=== PATIENT | female | born 1965 | race Caucasian/White ===

== ENCOUNTER 2024-10-08 08:46 | Emergency (ER) | payer OTHER, SELFPAY ==
[2024-10-08 08:49] VITALS: BP 132/88; PULSE 72; TEMP 36.3; O2SAT 99; BMI 21.1
--- OUTSIDE RECORDS SUMMARY | 2024-10-08 08:51 | XMS_ITS | Clinical Summary ---
Author Organization [employer] [facility] [employer] Address [address] [place] [id number] Care Team Providers Care Research Analyst Name Role Phone Eileen Klein MD Primary Care Provide r Allergies Active Allergy Reactions Criticality Noted Date Comments Dust Mites Rash 09/25/2017 Histamine Phosphate Rash,Dizziness,Headache 03/2018 Mold Rash 09/25/2017 Maitake Mushroom 10/31/2010 Gets sick Shellfish Containing Products Shortness Of Breath 09/17/2012 Wheat Myalgia 09/25/2017 Medications Fluocinolone Acetonide 0.01 % oil NoIndications:Ec zema of external ear, unspecified laterality Apply topically to affected area(s) 2 times daily. One drop twice daily to ears for ear eczema 118 mL 1 1 Active EPINEPHrine (EPIPEN) 0.3 mg/0.3 mL auto-injectorInd ications:Shellfi sh allergy ADMINISTER 0.3 MG(1PEN) IN THE MUSCLE 1 TIME NEEDED FOR ALLERGIC REACTION AND SEEK EMERGENCY CARE 2 Each 1 4 Active levothyroxine (SYNTHROID) 125 mcg tabletIndication s:Hypothyroidism (acquired) Take 1 Tablet (125 mcg) by mouth before breakfast. 90 Tablet 3 4 Active desonide (TRIDESILON) 0.05 % creamIndications :Contact dermatitis and eczema Apply topically to affected area(s) two times daily. 7.5 g 3 4 Active fluticasone (50 mcg per actuation) nasal solution (FLONASE)Indicat ions:Environment al allergies Inhale 2 Sprays in both nostrils once daily. 16 g 5 4 Active ketoconazole 2 % creamIndications :Seborrheic dermatitis Apply to affected areas/rash on body twice daily until resolved, then 1-2 times daily as needed. 60 g 3 4 Active triamcinolone (ARISTOCORT; KENALOG) 0.1 % creamIndications :Eczema, unspecified type Apply thin layer to affected areas on body 1-2 times a day as needed. Do not use more than 3 weeks at a time. 28 g 3 4 Active azelastine 137 mcg/actuation (ASTELIN) nasal sprayIndications :Seasonal allergic rhinitis due to pollen Inhale 2 Sprays into affected nostril(s) two times daily. 30 mL 11 5 Active Active Problems Problem Noted Date Diagnosed Date ASCUS of cervix with negative high risk HPV 12/15 Overview (12/28/2023): 12/2023 ASCUS/HPV negative Plan: PAP/HPV due 12/2026 Family history of colon cancer 09/25/2017 Overview (11/30/2022): Colonoscopy 10/2017 normal, repeat in 5 years Colonoscopy 11/2022 normal, repeat in 5 years Celiac disease 12/06/2010 Overview (12/06/2010): EGD 11/2010 celiac disease Ocular migraine 08/25/2008 Pes planus 01/16/2008 Unspecified sinusitis (chronic) 08/13/2007 Unspecified hypothyroidism 07/23/2006 Contact dermatitis and other eczema, due to unspecified cause 07/23/2006 Solitary cyst of breast 07/23/2006 Unspecified hypothyroidism 07/23/2006 Infectious mononucleosis 07/23/2006 Overview (07/23/2006): with hepatitis Resolved Problems Problem Noted Date Diagnosed Date Resolved Date Contact dermatitis and other eczema, due to unspecified cause 07/23/2006 08/25/2008 Encounters Date Type Department Care Team Description 10/08/2024 Nurse Triage [facility] [address] [place] [address] Eileen Klein MD Head Injury 09/25/2024 8:15 AM CDT Nurse/Clinic Staff Only [facility] [address] [place] [address] Immunization/Injectio n (ALLERGY INJECTIONS ) 09/25/2024 Travel 09/18/2024 1:30 PM CDT Nurse/Clinic Staff Only [facility] [address] [place] [address] Immunization/Injectio n (ALLERGY INJECTIONS ) 09/18/2024 Travel 09/04/2024 1:30 PM CDT Nurse/Clinic Staff Only [facility] [address] [place] [address] Immunization/Injectio n (ALLERGY INJECTIONS ) 09/04/2024 Travel 09/01/2024 1:30 PM CDT Nurse/Clinic Staff Only [facility] [address] [facility] [place] [address] Immunization/Injectio n (ALLERGY INJECTIONS ) 09/01/2024 Travel 08/25/2024 1:30 PM CDT Nurse/Clinic Staff Only [facility] [address] [place] [address] Immunization/Injectio n (ALLERGY INJECTIONS ) 08/25/2024 Travel 08/21/2024 2:00 PM CDT Nurse/Clinic Staff Only [facility] [address] [facility] [place] [address] Immunization/Injectio n (ALLERGY INJECTIONS - VORB PER DR. HAN DUE TO REACTION AFTER LAST DOSE. ) 08/21/2024 Travel 08/19/2024 8:00 AM CDT Telemedicine [facility] [address] [phone] Mehdi Han MBBS Allergies; Allergic Reaction 08/19/2024 Telephone [facility] [address] [place], [place] [phone] Mehdi Han MBBS allergy immunotherapy plan 08/18/2024 Travel 08/14/2024 1:15 PM CDT Nurse/Clinic Staff Only [facility] [address] [facility] [place] [address] Immunization/Injectio n (ALLERGY INJECTIONS ) 08/14/2024 Telephone [facility] [address] [facility] [place] [address] Eileen Klein MD Medication Management 08/14/2024 Nurse Triage [facility] [address] [place] [address] Cathleen Trevino RN Error-please disregard 08/14/2024 Travel 08/11/2024 2:00 PM CDT Nurse/Clinic Staff Only [facility] [address] [facility] [place] [address] Immunization/Injectio n (ALLERGY INJECTIONS ) 08/11/2024 Travel 08/04/2024 2:00 PM CDT Nurse/Clinic Staff Only [facility] [address] [place] [address] Immunization/Injectio n (Allergy shots) 08/04/2024 Travel 07/31/2024 2:00 PM CDT Nurse/Clinic Staff Only [facility] [address] [place] [address] Immunization/Injectio n (ALLERGY INJECTIONS ) 07/31/2024 Travel 07/28/2024 2:00 PM CDT Nurse/Clinic Staff Only [facility] [address] [place] [address] Immunization/Injectio n (Allergy shots) 07/28/2024 Travel 07/24/2024 2:15 PM CDT Nurse/Clinic Staff Only [facility] [address] [place] [address] Immunization/Injectio n (Allergy injections ) 07/24/2024 Travel 07/21/2024 2:00 PM CDT Nurse/Clinic Staff Only [facility] [address] [place] [address] Immunization/Injectio n (ALLERGY INJECTIONS ) 07/21/2024 Travel 07/17/2024 2:00 PM CDT Nurse/Clinic Staff Only [facility] [address] [place] [address] Immunization/Injectio n (ALLERGY INJECTIONS ) 07/17/2024 Travel from Last 3 Months Immunizations Immunization Administration Dates Next Due AMB Influenza, IIV3 (Age >=3 years)(Flu Clinic Only) 04/02/2008 COVID-19 vaccine (Madalyn-J& J) PF, MDV 06/21/2020 COVID-19 vaccine (Moderna 100mcg/0.5mL) PF, MDV 01/05/2023 COVID-19 vaccine (Moderna 50mcg/0.5mL) 12YO+ BIVALENT PF, MDV 12/22/2021 Hepatitis A (Adult) 07/21/1996, 6,12/23/1995,1994 Hepatitis B (Adult) 10/14/1993,11/17/1992,1992 Inactivated Polio Vaccine 02/22/1988 Influenza, IIV3 (Age >=3 years) 01/15/2009 Influenza, IIV4 01/19/2022,01/20/2021 Influenza,CCIIV4 PRESERV FREE 02/10/2023, 020 Chinese Encephalitis 10/10/2010,11/07/1994 MMR 10/05/1992 Rabies Vaccine 11/07/1994 Td (Age >=7 Years) 06/16/2003,11/07/1994 Tdap 03/18/2021,10/10/2010 Typhoid (injectable) 09/17/2012,10/11/19 11,08/20/2008,1995,03/24/1988,02/22/1988 Typhoid (oral) 10/05/1992 Yellow Fever 10/10/2010,02/22/1988 Zoster (Shingrix-RZV, recombinant) 02/24/2022, Family History Medical History Relation Name Comments Blood Disease Father preleukemia Cancer-colon Father Glaucoma Father Heart attack Father CABG, pacemaker Hyperlipidemia Father Hypertension Father Leukemia Father Other Father ?allergies Cancer-breast Maternal Grandmother Cancer-breast Maternal Uncle Hypertension Mother Migraines Mother Thyroid Disease Mother Celiac disease Son not confirmed Relation Name Status Comments Child Alive Father Maternal Grandmother Maternal Uncle Mother Son Alive Social History Tobacco Use Types Packs/Day Years Used Date Smoking Tobacco: Never Smokeless Tobacco: Never Tobacco Cessation:Counseling Given: Yes Alcohol Use Standard Drinks/Week Comments No 0 (1 standard drink = 0.6 oz pur e alcohol) PHQ-2 Answer Date Recorded PHQ-2 TOTAL SCORE 0 12/18/2023 Social Connections Answer Date Recorded Do you often feel lonely or isolated from those around you? 0 12/18/2023 Financial Resource Strain Answer Date R ecorded Difficulty of Paying Living Expenses 3 12/18/2023 Difficulty of Paying Living Expenses Not on file 12/18/2023 Food Insecurity Answer Date Recorded Do you worry your food will run out before you are able to buy more? 1 12/18/2023 Transportation Needs Answer Date Record ed Does lack of transportation keep you from medica l appointments? 1 12/18/2023 Does lack of transportation keep you from work, meetings or getting things that you need? 1 12/18/2023 Housing Stability Answer Date Recorded What is your housing situation today? 1 12/18/2023 Utilities Answer Date Recorded Do you have trouble paying f or utilities (for example, heat, electricity, water, phone)? 1 12/18/2023 Comments No Sex and Gender Information Value Date Recorded Sex Assigned at Not on file Legal Sex Female 5:51 AM PRINTING TECHNICIAN Gender Identity Not on file Sexual Orientation Not on file Obstetrics History Para Term AB IAB SAB Ectopic Multiple Livin g Live Births 2 2 2 2 Date Outcome GA Total Labor Labor/2nd/3rd Weight Sex Type Anes PTL Yumiko A1 A5 Name Clin Term Term Last Filed Vital Signs Vital Sign Reading Time Taken Comments Blood Pressure 103/67 12/18/2023 9:04 AM CDT Pulse 78 05/30/2024 10:17 AM PRINTING TECHNICIAN Temperature 36.6 C (97.8 F) 06/06/2023 3:28 PM PRINTING TECHNICIAN Respiratory Rate 12 05/30/2024 10:17 AM PRINTING TECHNICIAN Oxygen Saturation 99% 05/30/2024 10:17 AM PRINTING TECHNICIAN Inhaled Oxygen Concentration - - Weight 65.8 kg (145 lb) 01/25/2024 10:02 AM CDT at home Height 177.2 cm (5' 9.75) 01/25/2024 10:02 AM C DT Body Mass Index 20.95 01/25/2024 10:02 AM CDT Plan of Treatment Upcoming Encounters Date Type Department Care Team (Late st Contact Info) Description 10/09/2024 8:30 AM CDT Nurse/Clinic Staff Only [facility] [address] [place] [address] 10/13/2024 3:15 PM CDT Nurse/Clinic Staff Only [facility] [address] [facility] [place] [address] 11/06/2024 7:45 AM CDT Nurse/Clinic Staff Only [facility] [address] [facility] [place] [address] 11/10/2024 3:30 PM CDT Nurse/Clinic Staff Only [facility] [address] [place] [address] 11/13/2024 3:15 PM CDT Nurse/Clinic Staff Only [facility] [address] [place] [address] 11/17/2024 3:15 PM CDT Nurse/Clinic Staff Only [facility] [address] [facility] [place] [address] 11/20/2024 8:15 AM CDT Nurse/Clinic Staff Only [facility] [address] [facility] [place] [address] 11/24/2024 3:30 PM CDT Nurse/Clinic Staff Only [facility] [address] [facility] [place] [address] 11/27/2024 3:30 PM CDT Nurse/Clinic Staff Only [facility] [address] [facility] [place] [address] 12/01/2024 3:30 PM CDT Nurse/Clinic Staff Only [facility] [address] [place] [address] 12/04/2024 8:15 AM CDT Nurse/Clinic Staff Only [facility] [address] [facility] [place] [address] 12/08/2024 3:30 PM CDT Nurse/Clinic Staff Only [facility] [address] [place] [address] 12/11/2024 3:15 PM CDT Nurse/Clinic Staff Only [facility] [address] [place] [address] 12/23/2024 8:50 AM CDT Office Visit [facility] [address] [place] [address] Eileen Klein MD [address] [place] [address] Health Maintenance Due Date Last Done Comments HIV for age 15-65 06/26/1978 Pneumococcal series for age 50+ (1 of 1 - PCV) 06/26/2013 Influenza Vaccine (Season Ended) 2024 02/10/2023, 01/19/2022, 01/20/2021, Additional history exists Depression screening for age 12+ 12/17/2024 12/18/2023, 12/29/2021, 01/22/2020, Additional history exists BMI (ht and wt on same day) for age 18+ 01/24/2025 01/25/2024, 12/18/2023, 01/16/2023, Additional history exists Mammogram for age 45-75 05/09/2025 05/09/19, 04/30/2023, 04/18/2022, Additional history exists Pap test for age 21-65 12/17/2026 , 12/18/2023, 12/17/2020, Additional history exists Colonoscopy through age 75 12/01/202711/30, 11/30/2022, 11/05/2017, Additional history exists Lipids for age 45-75 02/13/2028 02/12/2023, 12/28/2020, 09/27/2017, Additional history exists Tetanus booster 03/18/2031 03/18/2021, 09/15, 06/16/2003, Additional history exists RSV vaccine for adults or (1 - 1-dose 75+ series) 06/26/2038 Hepatitis B series for 19+ Completed 10/14, 11/17/1992, 10/05/1992 Hepatitis C screening for ag e 18-79 Completed 12/28/2020 Tdap Completed 03/18/2021, 10/10/2010 Zoster (shingles) series for age 50+ Completed 02/24/2022, 11/15/2021 COVID-19 vaccine series Completed 01/26/20 24, 01/05/2023, 12/22/2021, Additional history exists Procedures Procedure Name Priority Date/Time Associated Diagnosis Comments XR MAMMO MARY BILAT SCREEN Routine 05/09/2024 10:14 AM PRINTING TECHNICIAN Encounter for screening mammogram for malignant neoplasm of breast HPV HIGH RISK Routine 12/18/2023 10:15 AM CDT Screening for cervical cancer LIPID PANEL W REFLEX MEASURED LDL Routine 02/12/2023 3:51 PM CDT Lipid screening COLONOSCOPY 11/30/2022 9:38 AM CDT ANTI HCV Routine 12/28/2020 7:36 AM CDT Encounter for hepatitis C screening test for low risk patient from Last 3 Months or Most Recently Relevant to Health Maintenance Results * XR MAMMO MARY BILAT SCREEN (05/09/2024 10:14 AM PRINTING TECHNICIAN) Anatomical Region Laterality Modality BREASTS, Breast Left, Breast Right Bilateral Mammography Impressions 05/12/2024 1:16 PM PRINTING TECHNICIAN There is no radiographic evidence for malignancy. Recommend annual mammograms. MAMMOGRAM ASSESSMENT: ACR 1 Negative PATIENTS: You will also receive a letter with your examination results in an easy to read format. If you have questions about your results, please contact your referring provider. Narrative 05/12/2024 1:16 PM PRINTING TECHNICIAN For Patients: As a result of the Century Cures Act, medical imaging exams and procedure reports are released immediately into your electronic medical record. You may view this report before your referring provider. If you have questions, please contact your health care provider. XR MAMMO MARY BILAT SCREEN [[id number]] CLINICAL HISTORY: This is an asymptomatic 58 y.o. patient. INDICATION FOR EXAM: Mammogram Screening. TECHNIQUE: CC & MLO views were obtained. This study was evaluated with the assistance of Computer-Aided Detection. Breast Tomosynthesis was used in interpretation. COMPARISON FILM: Yes 04/30/23 [facility] 04/18/22 [facility] FINDINGS: The breasts are heterogeneously dense, which may obscure small masses. There are no dominant masses, suspicious micro calcifications or areas of architectural distortion. Eileen Klein MD MAMMO Final Result * HPV HIGH RISK (12/18/2023 10:15 AM CDT) TYPE 16 Negative Negative 12/20/2023 5:23 PM CDT [facility] TYPE 18 Negative Negative 12/20/2023 5:23 PM CDT [facility] OTHER HIGH RISK TYPES Negative Negative 12/20/2023 5:23 PM CDT [facility] Other (Cervical) Non-Blood / Unknown 12/18/2023 10:15 AM CDT 12/19/2023 10:24 AM CDT Narrative [facility] - 12/20/2023 5:23 PM CDT HPV types 16, 18, 31, 33, 35, 39, 45, 51, 52, 56, 58, 59, 66 and 68 DNA were undetectable or below the pre-set threshold. Methodology: Amando Elan 4800 HPV Test Eileen Klein MD MICROBIOLOGY Final Result [facility] [address] [place] [address], * (ABNORMAL) LIPID PANEL W REFLEX MEASURED LDL (02/12/2023 3:51 PM CDT) CHOLESTEROL,TOTAL 211(H) 100 - 199 mg/dL 02/13/2023 2:30 PM CDT [facility] Comment: Cholesterol, Total Reference Ranges Desirable <200 mg/dL Borderline 200-239 mg/dL High >=240 mg/dL TRIGLYCERIDES 86 <150 mg/dL 02/13/2023 2:30 PM CDT [facility] HDL CHOLESTEROL 57 >40 mg/dL 2:30 PM CDT [facility] NON-HDL CHOLESTEROL 154(H) <145 mg/dl 02/13/2023 2:30 PM CDT [facility] CHOL/HDL RATIO 3.70 <4.50 02/13/2023 2:30 PM CDT [facility] LDL CHOLESTEROL 137(H) <=130 mg/dL 02/13/2023 2:30 PM CDT [facility] VLDL CHOLESTEROL 17 <=30 mg/dL 02/13/2023 2:30 PM CDT [facility] PROVIDER ORDERED STATUS RANDOM 02/13/2023 2:30 PM CDT [facility] Blood BLOOD SPECIMEN / Unknown Venipuncture / Unknown 02/12/2023 3:51 PM CDT 02/12/2023 3:53 PM CDT us Eileen Klein MD CHEMISTRY Final Result [facility] [address] [place] [address], * COLONOSCOPY (11/30/2022 9:38 AM CDT) 11/30/2022 9:38 AM CDT Narrative Transcriptions Randell Jesus MD - 11/30/2022 10:20 AM CDT Patient Name: Isabel Kong Procedure Date: 11/30/2022 Gender: Female Date of : 1965 Admit Type: Outpatient Procedure: Colonoscopy Proceduralist: Randell Jesus MD , Jocelyn Metzger RN(Nurse), Kaylee Braswell (Nurse) Indications/Pre-Op Diagnosis: Screening in patient at increased risk:Family history of 1st-degree relative withcolorectal cancer before age 60 years, Lastcolonoscopy: October 2017 Medications: Fentanyl 100 micrograms IV, Midazolam 4 mgIV Procedure Description: The patient had risks, benefits and alternatives explained to andgave informed consent. The patient had a stable cardiopulmonary status and judged an adequate candidate for conscious sedation. The endoscope [id number]-[id number] [id number] was passed through the anus andadvanced to the cecum, identified by appendiceal orifice and ileocecal valve.The colonoscopy was performed without difficulty. The patient toleratedthe procedure well. The quality of the bowel preparation was good. The ileocecal valve, appendiceal orifice, and rectum were photographed. Complications: No immediate complications. Estimated Blood Loss & Specimen: Estimated blood loss: none. Specimen collected - None Findings: The perianal and digital rectal examinations were normal. The entire examined colon appeared normal. Impressions/Post-Op Diagnosis: - The entire examined colon is normal. - No specimens collected. Recommendation: - Patient has a contact number available for emergencies. The signsand symptoms of potential delayed complications were discussed with the patient. Return to normal activities tomorrow. Written discharge instructions were provided to the patient. - Resume previous diet. - Continue present medications. - Repeat colonoscopy in 5 years for screening purposes. Moderate Sedation: A time out was performed before the procedure. Moderate (conscious) sedation was administered by the endoscopy nurse and supervised bythe endoscopist. The following parameters were monitored: oxygensaturation, heart rate, blood pressure, EKG, CO2, respiratory rate, adequacy of pulmonary ventilation and reponse to care. Please refer to the patient's medical record flowsheets and nursing notes for moderate sedation details. Total physician intraservice time was 13 minutes. Randell Jesus MD 11/30/2022 10:20:34 AM This report has been signed electronically. Note Initiated On: 11/30/2022 9:38 AM Procedure Code(s): --- Professional --- 87143, Colonoscopy, flexible; diagnostic, including collection of specimen(s) bybrushing or washing, when performed (separateprocedure) Diagnosis Code(s): --- Professional --- Z80.0, Family history of malignant neoplasmof digestive organs CPT copyright 2021 [employer]. All rights reserved. The codes documented in this report are preliminary and upon charter representative reviewmay be revised to meet current compliance requirements. Scope In: 10:05:52 AM Scope Withdrawal Time 0 hours 6 minutes 57 seconds Scope Out: 10:16:10 AM us Randell Jesus MD PROCEDURE ORD Final Res ult * ANTI HCV (12/28/2020 7:36 AM CDT) HEPATITIS C ANTIBODY Non-React lonnie Non-React lonnie 12/28/2020 4:[address] [facility] [facility] Comment:Antibodies to HCV no t detected; does not exclude the possibility of exposure to HCV. Blood BLOOD SPECIMEN / Unknown Butterfly / Unknown 12/28/2020 7:36 AM CDT 12/28/2020 7:39 AM CDT us Eileen Klein MD SEND OUTS [facility] [address] [place] [address], [place] from Last 3 Months or Most Recently Relevant to Health Maintenance Insurance [employer] [place] [id number] Advance Directives Documents on File Type Date Recorded Patient Lawn Mower Repairer Expl anation Healthcare Directive 07/24/2019 12:00 AM Care Teams Research Analyst Relationship Specialty Start Date End Date Eileen Klein MD [address] [place] [address] PCP - General 08/06/05
--- NOTE | 2024-10-08 09:27 | ED_ITS ---
HPI - General Adult General Date Seen: 10/08/24 Chief complaint: Dizziness/Vertigo Stated complaint: Vertigo Time Seen by Provider: 10/08/24 09:27 History of Present Illness HPI narrative: 59-year-old female presenting to the ER today with dizziness and vertigo. About 9 days ago on September 29 she was getting the bone dried hers when she slipped and she bumped her head on the edge of a canoe. That night she had some vomiting, dizziness and feeling achy. She has been using meclizine, 12.5 mg per dose, for dizziness and vertigo. Related Data Home Medications ?Medication ?Instructions ?Recorded ?Confirmed levothyroxine 112 mcg tablet 112 mcg PO 02/14/2209/16 (Synthroid) Previous Rx's ?Medication ?Instructions ?Recorded meclizine 25 mg tablet 12.5 - 25 mg (0.5 - 1 x 25 m g) PO 10/08/24 TID PRN vertigo #15 tabs ondansetron 4 mg disintegrating 4 mg PO Q8H PRN nausea and 10/08/24 tablet vomiting #10 tabs Allergies Allergy/AdvReac Type Severity Reaction Status Date / Time No Known Drug Allergies Allergy Verified 09/16/24 19:12 [facility] Medical History (Updated 10/08/24 @ 12:31 by Amilcar Fair MD) Celiac disease ?K90.0 - Celiac disease (ICD-10) Low back pain ?M54.50 - Low back pain, unspecified (ICD-10) Benign cyst of breast ?N60.09 - Solitary cyst of unspecified breast (ICD-10) History of cyst of breast ?Z87.2 - Personal history of diseases of the skin and subcutaneous tissue (ICD-10) Surgical History (Reviewed 02/14/22 @ 14:17 by Margy Coy ~ [facility], [facility]) History of appendectomy ?Z90.49 - Acquired absence of other specified parts of digestive tract (ICD- 10) Family History Father Colon cancer Social History (Updated 02/14/22 @ 14:17 by Margy Coy ~ [facility], [facility]) Smoking Status: Never smoker Do you use any of these nicotine containing products: None Second hand tobacco smoke exposure: No Exam Const: Vital Signs, click to edit/add: Vital Signs - 24 hr 10/08/24 08:49 Temperature 97.4 F L Pulse Rate [Pulse Oximeter] 72 Blood Pressure [Ri ght Upper Arm] 132/88 Pulse Oximetry 99 Oxygen Delivery Me thod Room Air Course Course ED Course: Recheck-had another wave of vertigo triggered when she laid down for CT. Back from CT she is now feeling better. Nausea improved after Zofran. Still feels like a little bit of a pressure like some swelling and heaviness in her frontal area of her head, but does not really want to call that a ? headache. Does not want any medication for it for now. Otherwise gait is stable. Vital Signs Vital signs: Initial Vital Signs Temperature 97.4 F L 10/08/24 08:49 Temperature Source Temporal Artery Scan 10/08/24 08:49 Pulse Rate 72 10/08/24 08:49 Blood Pressure 132/88 10/08/24 08:49 Blood Pressure Mean 102 10/08/24 08:49 Blood Pressure Position Sitting 10/08/24 08:49 Pulse Oximetry 99 10/08/24 08:49 Oxygen Delivery Method Room Air 10/08/24 08:49 Vital Signs Temperature 97.4 F L 10/08/24 08:49 Pulse Rate 72 10/08/24 08:49 Blood Pressure 132/88 10/08/24 08:49 Pulse Oximetry 99 10/08/24 08:49 Oxygen Delivery Method Room Air 10/08/24 08:49 Temperature 97.4 F L 10/08/24 08:49 Pulse Rate 72 10/08/24 08:49 Blood Pressure 132/88 10/08/24 08:49 Pulse Oximetry 99 10/08/24 08:49 Oxygen Delivery Method Room Air 10/08/24 08:49 Medications Administered Medications: Discontinued Medications Generic Name Dose Route Start Last Admin Trade Name Freq PRN Reason Stop Dose Admin Ondansetron HCl 4 mg 10/08/24 10:21 10/08/24 10:29 Ondansetron 2 Mg/Ml Inj IVP 10/08/24 10:22 4 mg ONCE ONE Administration Medical Decision Making MDM Narrative Medical decision making narrative: This patient presents for evaluation of dizziness c/w vertigo as well as general ly feeling unwell, sometimes nauseous, mild headache ?like a sock? in her frontal lobe. She actually suffered a mild traumatic brain injury last Sunday when the symptoms started. The differential diagnosis of vertigo is broad and includes common etiologies such as menieres disease, labyrinthitis, benign positional vertigo, otitis media, etc. More serious etiologies considered include central etiologies such as tumor, intracerebral bleed, dissection, ischemic cerebral vascular accident, stroke, intracranial hemorrhage as well as traumatic brain injury such as concussion. Differential includes intracranial injuries (e.g. skull fracture, epidural hematoma, subdural hematoma, intracerebral hemorrhage, and traumatic subarachnoid hemorrhage), verses concussion or other traumatic brain injury. CT imaging was obtained and fortunately was normal. At this time it appears that the patient's symptoms are due to a concussion. The patient/family understand that they must return if any red flags appear/develop in the coming hours/days, as this may represent an indication to perform a repeat CT scan or further evaluation. I have noted that red flags include: headaches that get worse, increased drowsiness, strange behavior, repetitive speech, seizures, repeated vomiting, growing confusion, increased irritability, slurred speech, weakness or numbness, and loss of responsiveness. This information will also be provided in writing at discharge. I have discussed the second impact syndrome, and the importance of not sustaining repeated concussion in the next 1-2 weeks. Post concussive syndrome is also discussed. The patient's questions have been answered. They have a responsible adult to accompany them home. Imaging Data CT scan - head: Attestation: I have reviewed the pertinent imaging results. Radiologist's impression: FINDINGS: CSF spaces: Within normal limits for age. Brain parenchyma and extra-axial spaces: The duke-white differentiation is normal. No sign of mass, hemorrhage, or midline shift. No extra-axial fluid collection. Skull base and calvarium: The visualized paranasal sinuses and mastoid air cells demonstrate no acute or significant findings. The visualized orbits are grossly unremarkable. No skull fractures. Small exophytic areas of calcification along the inner table of the right frontal calvarium, likely represent small meningiomas. IMPRESSION: No acute intracranial abnormality. ECG Data Attestation: I personally reviewed and interpreted this ECG as follows: Interpretation: Normal sinus rhythm with first-degree AV block Rate: 63 [place]: 220 QRS axis: Normal axis. ST segment/T wave: No ST segment elevation or depression. Computer monitor notes septal infarct which is not true. There are no Q-waves here. QTc: 413 Discharge Plan Discharge Clinical Impression: Concussion, Vertigo Patient Disposition: Home, Self-Care Condition: Stable Instructions: Vertigo (DC), Concussion (ED) Additional Instructions: As we discussed, you can use the meclizine if needed to help diminished the sy mptoms of vertigo. Use the Zofran if needed help treat nausea or vomiting. It is okay to use Tylenol or ibuprofen if needed you have headache. Remember if you have any worsening or concerning symptoms, please come back to the ER or see your doctor's office right away to be rechecked. Prescriptions: New ondansetron 4 mg tablet,disintegrating 4 mg PO Q8H PRN (Reason: nausea and vomiting) Qty: 10 0RF meclizine 25 mg tablet 12.5 - 25 mg PO TID PRN (Reason: vertigo) Qty: 15 0RF No Action levothyroxine [Synthroid] 112 mcg tablet 112 mcg PO Follow Up/Referrals: Eileen Klein MD [Primary Care Provider, Family Practice] Stand Alone Forms: [email or web address] Info Instructions
--- NOTE | 2024-10-08 10:01 | CRLHL7_ITS ---
For Patients: As a result of the Century Cures Act, medical imaging exams and procedure reports are released immediately into your electronic medical record. You may view this report before your referring provider. If you have questions, please contact your health care provider. INDICATION: Head injury, vertigo TECHNIQUE: CT head without contrast. COMPARISON: None. FINDINGS: CSF spaces: Within normal limits for age. Brain parenchyma and extra-axial spaces: The duke-white differentiation is normal. No sign of mass, hemorrhage, or midline shift. No extra-axial fluid collection. Skull base and calvarium: The visualized paranasal sinuses and mastoid air cells demonstrate no acute or significant findings. The visualized orbits are grossly unremarkable. No skull fractures. Small exophytic areas of calcification along the inner table of the right frontal calvarium, likely represent small meningiomas. IMPRESSION: No acute intracranial abnormality. Please note that all CT scans at this facility use dose modulation, iterative reconstruction, and/or weight-based dosing when appropriate to reduce radiation dose to as low as reasonably achievable. Dictated by Jennifer Biggs MD @ 10/08/2024 10:43:44 AM (Electronically Signed)
[2024-10-08] MEDS: ONDANSETRON 2 MG/ML inj 4 MG IVP (10:29)
== END 2024-10-08 12:40 | disposition home or self-care (01) ==
PROVIDERS: Emergency Provider Emergency Medicine; PCP Family Medicine
DX: R42 Dizziness and giddiness (principal); S06.0X0A Concussion without loss of consciousness, initial encounter
CPT/HCPCS: 70450; 93005; 96374; 99283; 99284; J2405